=== PATIENT | male | born 1990 | race Caucasian/White ===

== ENCOUNTER 2020-09-14 14:44 | Emergency (ER) | payer SELFPAY ==
[~2020-09-14] VITALS: Ht 182.9 cm; Wt 83.0 kg
--- NOTE | 2020-09-14 14:59 | NUR ---
PAtient brought in by [facility] for uncontrolled nausea and vomiting
[2020-09-14] MEDS ORDERED: MAG HYDROX/AL HYDROX/SIMETH 30 ML LIQUID UDC PO ONE (15:15)
[2020-09-14] MEDS ORDERED: IV NORMAL SALINE 1000 ML BAG IV ONE (15:15)
[2020-09-14] MEDS ORDERED: LIDOCAINE VISCUS 2% 15 ML UDC MM ONE (15:15)
[2020-09-14] MEDS ORDERED: METOCLOPRAMIDE HCL 10 MG/2 ML VIAL IV ONE (15:15)
[2020-09-14] MEDS ORDERED: ONDANSETRON 4 MG/2 ML VIAL IV ONE (15:15)
[2020-09-14] MEDS ORDERED: FAMOTIDINE. 20 MG/2 ML VIAL IV ONE ×2 (15:15→15:28)
[2020-09-14] MEDS ORDERED: METOCLOPRAMIDE HCL 10 MG/2 ML VIAL ONE (15:27)
[2020-09-14] MEDS ORDERED: ONDANSETRON 4 MG/2 ML VIAL ONE (15:28)
[2020-09-14] MEDS ORDERED: LIDOCAINE VISCUS 2% 15 ML UDC ONE (15:28)
[2020-09-14 15:29] LABS: CREATININE 1.4 mg/dL (0.6-1.3)
[2020-09-14 15:30] LABS: ETHANOL < 3 MG/DL (0-0)
[2020-09-14 15:42] LABS: HEMATOCRIT 51.6 % (36.7-47.1); MEAN CORPUSCULAR HEMOGLOBIN 30.9 uug (23.8-33.4); MEAN CORPUSCULAR VOLUME 91.1 fL (73.0-96.2); PLATELET COUNT (AUTO) 262 K/uL (152-348)
[2020-09-14 15:43] LABS: BILIRUBIN,DIRECT 0.1 mg/dL (0.0-0.2); BILIRUBIN,TOTAL 0.4 mg/dL (0.2-1.0)
[2020-09-14] MEDS ORDERED: CIPROFLOXACIN HCL 250 MG TABLET PO ONE (15:45)
[2020-09-14 15:46] LABS: MAGNESIUM 2.2 mg/dL (1.8-2.4); PHOSPHOROUS 4.5 mg/dL (2.5-4.9)
[2020-09-14] MEDS ORDERED: METO-295 PO (16:01)
[2020-09-14] MEDS ORDERED: ONDA4TAB11 PO (16:01)
[2020-09-14] MEDS ORDERED: CIPR500T5 PO (16:01)
[2020-09-14] MEDS ORDERED: CIPROFLOXACIN HCL 250 MG TABLET ONE (16:14)
--- NOTE | 2020-09-14 17:05 | NUR ---
Patient discharged to home in stable condition. Vomiting and nausea ceased at this time, Rx given, patient took all medications. Written and verbal after care instructions given. Patient verbalizes understanding of instructions. Stressed follow up or return to ER for worsening s/s.
[2020-09-14 17:07] VITALS: BP 139/91
== END 2020-09-14 17:03 | disposition home or self-care (01) ==
LOC: ER 14:46
DX: N17.9 Acute kidney failure, unspecified (principal); E86.0 Dehydration; R11.2 Nausea with vomiting, unspecified; D72.829 Elevated white blood cell count, unspecified; J45.909 Unspecified asthma, uncomplicated; F17.200 Nicotine dependence, unspecified, uncomplicated
CPT/HCPCS: 36415; 80048; 80076; 80320; 83690; 83735; 84100; 85025; 96361; 96374; 96375; 99284; J2405; J2765; J3490; A4663; G0480; J7030